=== PATIENT | female | born 1985 | race African-American/Black ===

== ENCOUNTER 2019-02-19 08:42 | Emergency (ER) | payer MEDICAID ==
[~2019-02-19] VITALS: Ht 167.6 cm; Wt 59.0 kg
[2019-02-19] MEDS ORDERED: IBUPROFEN 600MG TABLET PO STA (09:04)
[2019-02-19 09:20] LABS: CLARITY URINE CLOUDY (CLEAR); COLOR URINE DARK YELLOW (YELLOW); KETONES URINE 4+ (NEGATIVE); LEUKOCYTE ESTERASE URINE TRACE (NEGATIVE); NITRITE URINE NEGATIVE (NEGATIVE); OCCULT BLOOD URINE 2+ (NEGATIVE); PH URINE 6.5 (4.5-8.0); PROTEIN URINE 1+ (NEGATIVE); SPECIFIC GRAVITY URINE 1.025 (1.005-1.030)
[2019-02-19 10:33] VITALS: BP 111/72
== END 2019-02-19 10:35 | disposition home or self-care (01) ==
LOC: ER 09:13
DX: N39.0 Urinary tract infection, site not specified (principal); J00 Acute nasopharyngitis [common cold]
CPT/HCPCS: 71045; 81003; 99284

== ENCOUNTER 2021-02-12 10:19 | Emergency (ER) | payer MEDICAID ==
[~2021-02-12] VITALS: Ht 157.5 cm; Wt 48.0 kg
[2021-02-12 10:23] VITALS: BP 102/67
== END 2021-02-12 11:25 | disposition left against medical advice (07) ==
LOC: ER 10:19
DX: Z53.21 Procedure and treatment not carried out due to patient leaving prior to being seen by health care provider (principal)

== ENCOUNTER 2024-12-05 14:13 | Emergency (ER) | payer MEDICAID ==
[~2024-12-05] VITALS: Ht 165.1 cm; Wt 73.0 kg
[2024-12-05 14:15] VITALS: O2SAT 98
[2024-12-05] MEDS: HYDROCODONE/ACETAMINOPHEN 5/325MG TABLET PO ONE (15:00)
[2024-12-05] MEDS ORDERED: IBUP-2030 MT (17:59)
[2024-12-05 18:00] VITALS: BP 116/81; PULSE 71; RESP 14; TEMP 36.6; O2SAT 100
== END 2024-12-05 18:20 | disposition home or self-care (01) ==
LOC: ER 14:13
DX: S05.12XA Contusion of eyeball and orbital tissues, left eye, initial encounter (principal); Y04.0XXA Assault by unarmed brawl or fight, initial encounter; Y93.89 Activity, other specified; Y92.89 Other specified places as the place of occurrence of the external cause; Y99.8 Other external cause status
CPT/HCPCS: 70486; 99284